=== PATIENT | female | born 1965 | race Two or more races ===

== ENCOUNTER 2018-11-05 11:24 | Emergency (ER) | payer OTHER ==
[~2018-11-05] VITALS: Ht 165.1 cm; Wt 45.4 kg
[2018-11-05 11:39] VITALS: BP 108/54
[2018-11-05] MEDS ORDERED: cefTRIAXone SOD 1,000 MG VL IM ONE (12:30)
[2018-11-05] MEDS ORDERED: BENZOCAINE (DENTAL) 20 % SPRAY 60ML MT ONE (12:30)
== END 2018-11-05 13:18 | disposition home or self-care (01) ==
LOC: ER 11:24
DX: K04.7 Periapical abscess without sinus (principal); F17.210 Nicotine dependence, cigarettes, uncomplicated; Z88.2 Allergy status to sulfonamides
CPT/HCPCS: 41800; 96372; 99283; J0696